=== PATIENT | female | born 1985 | race Caucasian/White ===

== ENCOUNTER 2019-09-30 11:53 | Observation (INO) | payer OTHER ==
[2019-09-30] MEDS ORDERED: LORazepam 1 MG TAB PO STA (12:28)
--- NOTE | 2019-09-30 12:40 | ED ---
Skin/Abscess/FB HPI - General Chief complaint: Skin/Abscess/Foreign Body Stated complaint: FB in arm Time Seen by Provider: 09/30/19 11:55 Source: patient Mode of arrival: wheelchair Limitations: no limitations - History of Present Illness Initial comments: A shows a 33-year-old female past medical history of IVDA who presents to the emergency department with reported once her bilateral upper extremities. States she has had multiple open wounds, the largest of which is on the right forearm. 3 days ago she went into [facility] and was placed on Keflex and Bactrim. She states that she took the medications for 1 day and woke up to the wounds getting larger in size. She then went back into [facility]. States that they were going to admitted to the hospital for failed outpatient treatment. She states that she was poorly treated there, therefore left before being admitted to the floor. She does admit to recent heroin use. Denies any fevers or chills. Does have mild pustular drainage from the sites. Denies any nausea or vomiting. No other alleviating, precipitating or modifying factors - Related Data Home Medications Medication Instructions Recorded Confirmed ALPRAZolam [Xanax] 0.25 mg PO BID PRN 09/30/19 09/30/19 ARIPiprazole [Abilify] 10 mg PO DAILY 09/30/19 09/30/19 Acetaminophen Tab [Tylenol] 1,000 mg PO Q4H PRN 09/30/19 09/30/19 FLUoxetine HCL [PROzac] 20 mg PO DAILY 09/30/19 09/30/19 Ibuprofen [Motrin Ib] 800 mg PO Q4H PRN 09/30/19 09/30/19 Previous Rx's Medication Instructions Recorded Sulfamethox-Tmp 800-160Mg [Bactrim 1 tab PO Q12HR 5 Days #12 tab 10/02/19 DS 800-160 mg] Allergies Allergy/AdvReac Type Severity Reaction Status Date / Time No Known Allergies Allergy Verified 09/30/19 13:05 Review of Systems ROS Statement: Those systems with pertinent positive or pertinent negative responses have been documented in the HPI. ROS Other: All systems not noted in ROS Statement are negative. Past Medical History Past Medical History: Asthma History of Any Multi-Drug Resistant Organisms: None Reported Past Surgical History: Cholecystectomy Past Psychological History: ADD/ADHD, Anxiety, Bipolar, Depression Smoking Status: Current every day smoker Past Alcohol Use History: None Reported Past Drug Use History: Heroin - Past Family History Mother Family Medical History: Hypertension Additional Family Medical History / Comment(s): Anxiety Father Family Medical History: Diabetes Mellitus, Liver Disease Additional Family Medical History / Comment(s): Hepatitis C General Exam Limitations: no limitations General appearance: alert, in no apparent distress Head exam: Present: atraumatic, normocephalic, normal inspection Eye exam: Present: normal appearance, PERRL, EOMI. Absent: scleral icterus, conjunctival injection, periorbital swelling ENT exam: Present: normal exam, mucous membranes moist Neck exam: Present: normal inspection. Absent: tenderness, meningismus, lymphadenopathy Respiratory exam: Present: normal lung sounds bilaterally. Absent: respiratory distress, wheezes, rales, rhonchi, stridor Cardiovascular Exam: Present: regular rate, normal rhythm, normal heart sounds. Absent: systolic murmur, diastolic murmur, rubs, gallop, clicks GI/Abdominal exam: Present: soft, normal bowel sounds. Absent: distended, tenderness, guarding, rebound, rigid Extremities exam: Present: full ROM, tenderness, normal capillary refill, other (Multiple open wounds to the bilateral anterior forearms. Patient has an area of erythema over the anterior right mid forearm. Central area of scab. No active drainage from this site. No fluctuance currently. No lymphatic streaking. No joint involvement). Absent: pedal edema, joint swelling, calf tenderness Back exam: Present: normal inspection Neurological exam: Present: alert, oriented X3, CN II-XII intact Psychiatric exam: Present: normal affect, normal mood Skin exam: Present: warm, dry, intact, normal color. Absent: rash Course Vital Signs 09/30/19 09/30/19 11:54 15:28 Temperature 98.7 F Pulse Rate 94 82 Respiratory 18 16 Rate Blood Pressure 123/79 123/65 O2 Sat by Pulse 98 99 Oximetry Procedures - Incision & Drainage Consent Obtained: verbal consent Site: upper extremity Anesthetic Used: lidocaine 1% Amount (mLs): 6 I&D Cleaning Method: Chloroprep Sterile Field Used?: Yes Needle Aspiration Performed?: No Irrigation Performed?: No I&D Drainage Obtained: Pus Culture Obtained?: Yes Patient Tolerated Procedure: well, no complications Medical Decision Making - Medical Decision Making Upon arrival the patient is placed in room 19. A thorough history and physical exam was performed. Peripheral IV was established. Laboratory studies were obtained including blood cultures. Patient initiated on Unasyn and Vanco. The patient's right forearm abscess was incised. Timeout performed at 15:05. Wound culture obtained. Patient will be admitted for failed outpatient treatment. I discussed the case with Dr. London who accepted admission. She was then transferred to the floor - Lab Data Result diagrams: 10/01/19 08:14 10/01/19 08:14 Lab Results 09/30/19 09/30/19 09/30/19 Range/Units 13:35 13:54 13:54 WBC 5.6 (3.8-10.6) k/uL RBC 4.31 (3.80-5.40) m/uL Hgb 12.2 (11.4-16.0) gm/dL Hct 38.4 (34.0-46.0) % MCV 89.2 (80.0-100.0) fL MCH 28.3 (25.0-35.0) pg MCHC 31.7 (31.0-37.0) g/dL RDW 13.0 (11.5-15.5) % Plt Count 207 (150-450) k/uL Neutrophils % 64 % Lymphocytes % 28 % Monocytes % 3 % Eosinophils % 3 % Basophils % 0 % Neutrophils # 3.6 (1.3-7.7) k/uL Lymphocytes # 1.6 (1.0-4.8) k/uL Monocytes # 0.2 (0-1.0) k/uL Eosinophils # 0.2 (0-0.7) k/uL Basophils # 0.0 (0-0.2) k/uL ESR 32 H (0-20) mm/hr Sodium 138 (137-145) mmol/L Potassium 4.3 (3.5-5.1) mmol/L Chloride 106 (98-107) mmol/L Carbon Dioxide 26 (22-30) mmol/L Anion Gap 6 mmol/L BUN 10 (7-17) mg/dL Creatinine 0.42 L (0.52-1.04) mg/dL Est GFR (CKD-EPI)AfAm >90 (>60 ml/min/1.73 sqM) Est GFR (CKD-EPI)NonAf >90 (>60 ml/min/1.73 sqM) Glucose 119 H (74-99) mg/dL Plasma Lactic Acid Damian 1.2 (0.7-2.0) mmol/L Calcium 9.2 (8.4-10.2) mg/dL Total Bilirubin 0.2 (0.2-1.3) mg/dL AST 26 (14-36) U/L ALT 31 (4-34) U/L Alkaline Phosphatase 79 (38-126) U/L C-Reactive Protein 30.5 H (<10.0) mg/L Total Protein 7.4 (6.3-8.2) g/dL Albumin 4.2 (3.5-5.0) g/dL Disposition Clinical Impression: Cellulitis of arm, right, Abscess, Intravenous drug abuse Disposition: ADMITTED IP TO THIS [facility] Condition: Stable Is patient prescribed a controlled substance at d/c from ED?: No Decision to Admit Reason: Admit from EC Decision Date: 09/30/19 Decision Time: 14:31
--- NOTE | 2019-09-30 13:45 | XR ---
EXAMINATION TYPE: XR forearm bilateral DATE OF EXAM: 09/30/2019 CLINICAL HISTORY: pain TECHNIQUE: Frontal and lateral images of the left forearm are obtained. COMPARISON: None. FINDINGS: There is no acute fracture/dislocation evident. The joint spaces appear within normal limi ts. Sliver radiopaque foreign body ventral soft tissues approximately 6 cm from the elbow joint. IMPRESSION: There is no acute fracture or dislocation. ICD 10 NO FRACTURE, INITIAL EVALUATION EXAMINATION TYPE: XR forearm bilateral DATE OF EXAM: 09/30/2019 CLINICAL HISTORY: pain TECHNIQUE: Frontal and lateral images of the right forearm are obtained. COMPARISON: None. FINDINGS: There is no acute fracture/dislocation evident. The joint spaces appear within normal limi ts. The overlying soft tissue appears unremarkable.
[2019-09-30 14:07] LABS: Basophils % (A) 0 %; Eosinophils # (A) 0.2 k/uL (0-0.7); Eosinophils % (A) 3 %; HCT 38.4 % (34.0-46.0); HGB 12.2 gm/dL (11.4-16.0); Lymphocytes # (A) 1.6 k/uL (1.0-4.8); Lymphocytes % (A) 28 %; MCH 28.3 pg (25.0-35.0); MCHC 31.7 g/dL (31.0-37.0); MCV 89.2 fL (80.0-100.0); Mean Platelet Volume 8.1; Monocytes # (A) 0.2 k/uL (0-1.0); Monocytes % (A) 3 %; Neutrophils # (A) 3.6 k/uL (1.3-7.7); Neutrophils % (A) 64 %; Platelet Count 207 k/uL (150-450); RBC 4.31 m/uL (3.80-5.40); WBC 5.6 k/uL (3.8-10.6)
[2019-09-30 14:23] LABS: ALT 31 U/L (4-34); AST 26 U/L (14-36); African American GFR (CKD) >90 (>60 ml/min/1.73 sqM); Albumin 4.2 g/dL (3.5-5.0); Alkaline Phosphatase 79 U/L (38-126); Anion Gap 6 mmol/L; Blood Urea Nitrogen 10 mg/dL (7-17); C Reactive Protein 30.5 mg/L (<10.0); Calcium 9.2 mg/dL (8.4-10.2); Carbon Dioxide 26 mmol/L (22-30); Chloride 106 mmol/L (98-107); Glucose 119 mg/dL (74-99); Non-African American GFR(CKD) >90 (>60 ml/min/1.73 sqM); Potassium 4.3 mmol/L (3.5-5.1); Sodium 138 mmol/L (137-145); Total Bilirubin 0.2 mg/dL (0.2-1.3); Total Protein 7.4 g/dL (6.3-8.2)
[2019-09-30] MEDS ORDERED: LIDOCAINE 1% INJ 10MG/ML (20 ML MDV) SQ ONE (14:59)
[2019-09-30] MEDS ORDERED: NALOXONE 0.4 MG/ML 1 ML VIAL IV PRN (15:07)
[2019-09-30 15:20] LABS: Erythrocyte Sedimentation Rate 32 mm/hr (0-20)
[2019-09-30] MEDS ORDERED: AMPICILLIN-SULBACTAM 3 GM in SODIUM CHLORIDE 0.9% 100 ML IVPB STA (15:25)
[2019-09-30] MEDS ORDERED: VANCOMYCIN IV PER PHARMACY 1 EACH MISC MISCELLANE PRN (15:25)
[2019-09-30] MEDS ORDERED: MORPHINE SULFATE 2 MG/ML SYRINGE IVP STA (15:41)
[2019-09-30] MEDS ORDERED: VANCOMYCIN 1,500 MG in SODIUM CHLORIDE 0.9% 250 ML IVPB ONE (15:45)
[2019-09-30] MEDS: SODIUM CHLORIDE 0.9% 1,000 ML IV SCH (15:47)
[2019-09-30] MEDS: HYDROcodone/APAP 5-325MG 1 EACH TAB PO PRN ×2 (17:50→23:37)
[2019-09-30] MEDS: ALPRAZolam 0.25 MG TAB PO PRN (22:26)
[2019-09-30] MEDS: HEPARIN SODIUM,PORCINE 5,000 UNIT/ML 1 ML VIAL SQ SCH (23:35)
[2019-10-01] MEDS: VANCOMYCIN 1,500 MG in SODIUM CHLORIDE 0.9% 250 ML IVPB SCH ×2 (00:11→08:25)
[2019-10-01] MEDS: SODIUM CHLORIDE 0.9% 1,000 ML IV SCH ×3 (00:12→20:13)
--- NOTE | 2019-10-01 00:32 | P.HPIM ---
History of Present Illness H&P Date: 09/30/19 Chief Complaint: Right forearm swelling Patient is a 33-year-old female with a known history of IVDU, ongoing nicotine addiction, ADD/ADHD, anxiety/depression, bipolar disorder came to ER with complaints of right forearm. Patient states that she went to [facility] and was started on antibiotics in the form of Keflex and Bactrim about 3 days ago. Patient took her medication for 1 day and felt like swelling is getting worse and wounds are getting larger and went back to [facility]. Patient was being admitted to the hospital but patient left AMA saying that she was not treated well there. Patient presented to the hospital ER. Otherwise patient denied any complaints of fever or chills. Complains of pain. Patient admits heroin use. Patient was found to have cholangitis from the right forearm wound and I&D was done in the ER. Patient denied any complaints of chest pain or shortness of breath. No nausea vomiting or abdominal pain or diarrhea. No cough or sputum production. Forearm x-ray right showed no acute fracture or dislocation. Overlying soft tissue appears unremarkable. Lab data showed WBC 5.6, hemoglobin 12.2 and platelets 207 Sodium 138, potassium 4.3 and BUN 10 creatinine 0.42 CRP 30.5 Lactic acidosis 1.2 Patient has been afebrile on admission. Review of Systems Constitutional: Patient denies any fever or chills . No generalized weakness or weight loss. Abdomen: Patient denied nausea vomiting and diarrhea and abdominal pain. Cardiovascular: Patient denies any chest pain or short of breath no palpitations. Respiratory: patient denied any cough is from production. No shortness of breath Neurologic: Patient denied any numbness or tingling headache. Musculoskeletal: Patient denies any complaints of joint swelling or deformity. n Right forearm swelling and pain. Skin: Negative Psychiatric: Negative Endocrine: No heat or cold intolerance. No recent weight gain. Genitourinary: No dysuria or hematuria. All other 14 point ROS negative except the above Constitutional: Reports as per HPI Past Medical History Past Medical History: Asthma Additional Past Medical History / Comment(s): Asthma as a child, ovarian cysts History of Any Multi-Drug Resistant Organisms: None Reported Past Surgical History: Cholecystectomy Past Anesthesia/Blood Transfusion Reactions: No Reported Reaction Smoking Status: Light tobacco smoker - Past Family History Mother Family Medical History: Hypertension Additional Family Medical History / Comment(s): Anxiety Father Family Medical History: Diabetes Mellitus, Liver Disease Additional Family Medical History / Comment(s): Hepatitis C Medications and Allergies Home Medications Medication Instructions Recorded Confirmed Type ALPRAZolam [Xanax] 0.25 mg PO BID PRN 09/30/19 09/30/19 History ARIPiprazole [Abilify] 10 mg PO DAILY 09/30/19 09/30/19 History Acetaminophen Tab [Tylenol Tab] 1,000 mg PO Q4H PRN 09/30/19 09/30/19 History FLUoxetine HCL [PROzac] 20 mg PO DAILY 09/30/19 09/30/19 History Ibuprofen [Motrin Ib] 800 mg PO Q4H PRN 09/30/19 09/30/19 History Allergies Allergy/AdvReac Type Severity Reaction Status Date / Time No Known Allergies Allergy Verified 09/30/19 13:05 Physical Exam Vitals: Vital Signs Temp Pulse Pulse Resp BP BP Pulse Ox 09/30/19 16:46 98.0 F 82 17 118/80 97 09/30/19 15:28 82 16 123/65 99 09/30/19 11:54 98.7 F 94 18 123/79 98 Intake and Output 09/30/19 09/30/19 09/30/19 06:59 14:59 22:59 Other: Weight 90.718 kg 90.718 kg PHYSICAL EXAMINATION: Patient is lying in the bed comfortably, no acute distress, awake alert and oriented.. HEENT: Normocephalic. Neck is supple. Pupils reactive. Nostrils clear. Oral cavity is moist. Ears reveal no drainage. Neck reveals no JVD, carotid bruits, or thyromegaly. CHEST EXAMINATION: Trachea is central. Symmetrical expansion. Lung way clear to auscultation and percussion. CARDIAC: Normal S1, S2 with no gallops. No murmurs ABDOMEN: Soft. Bowel sounds normal. No organomegaly. No abdominal bruits. Extremities: reveal no edema. No clubbing or cyanosis Neurologically awake, alert, oriented x3 with well-coordinated movements. No focal deficits noted Skin: No rash or skin lesions. Psychiatric: Coperative. Nonsuicidal Musculoskeletal: No joint swelling or deformity. Normal range of motion. Right forearm swelling with open wound on the medial side of the elbow. Redness and warmth present. Minimal tenderness. No other fluid collections noted. Results CBC & Chem 7: 09/30/19 13:54 09/30/19 13:54 Labs: Abnormal Lab Results - Last 24 Hours (Table) 09/30/19 09/30/19 Range/Units 13:54 13:54 ESR 32 H (0-20) mm/hr Creatinine 0.42 L (0.52-1.04) mg/dL Glucose 119 H (74-99) mg/dL C-Reactive Protein 30.5 H (<10.0) mg/L Thrombosis Risk Factor Assmnt - DVT/VTE Prophylaxis DVT/VTE Prophylaxis: Pharmacologic Prophylaxis ordered - Choose All That Apply Any of the Below Risk Factors Present?: Yes Each Factor Represents 1 point: Obesity (BMI >25) Other Risk Factors: No Other congenital or acquired thrombophilia - If yes, enter type in comment: No Thrombosis Risk Factor Assessment Total Risk Factor Score: 1 Thrombosis Risk Factor Assessment Level: Low Risk Assessment and Plan Assessment: Right forearm abscess with surrounding cellulitis. Status post I&D in the ER. IV drug use with heroin Asthma stable Anxiety depression bipolar disorder DVT prophylaxis with heparin subcu Obesity with BMI 32.3 Plan: Patient will be continued on antibiotics of vancomycin and Unasyn dose was given in the ER. Follow-up blood culture report. Continue the pain management. Further recommendations based on clinical course. Patient was counseled extensively to quit using IV drugs. Smoking cessation has been counseled as well. Time with Patient: Greater than 30
[2019-10-01] MEDS: HYDROcodone/APAP 5-325MG 1 EACH TAB PO PRN ×2 (04:47→10:55)
[2019-10-01] MEDS: ARIPiprazole 10 MG TAB PO SCH (08:25)
[2019-10-01] MEDS: HEPARIN SODIUM,PORCINE 5,000 UNIT/ML 1 ML VIAL SQ SCH ×2 (08:25→16:33)
[2019-10-01] MEDS: FLUoxetine HCL 20 MG CAP PO SCH (08:25)
[2019-10-01] MEDS: ALPRAZolam 0.25 MG TAB PO PRN ×2 (08:34→16:33)
[2019-10-01 08:48] LABS: Basophils % (A) 0 %; Eosinophils # (A) 0.3 k/uL (0-0.7); Eosinophils % (A) 4 %; HCT 35.4 % (34.0-46.0); HGB 12.1 gm/dL (11.4-16.0); Lymphocytes # (A) 1.8 k/uL (1.0-4.8); Lymphocytes % (A) 28 %; MCH 29.8 pg (25.0-35.0); MCHC 34.1 g/dL (31.0-37.0); MCV 87.4 fL (80.0-100.0); Mean Platelet Volume 9.7; Monocytes # (A) 0.1 k/uL (0-1.0); Monocytes % (A) 2 %; Neutrophils # (A) 4.1 k/uL (1.3-7.7); Neutrophils % (A) 64 %; Platelet Count 259 k/uL (150-450); RBC 4.05 m/uL (3.80-5.40); RDW 12.8 % (11.5-15.5); WBC 6.4 k/uL (3.8-10.6)
[2019-10-01 09:10] LABS: African American GFR (CKD) >90 (>60 ml/min/1.73 sqM); Anion Gap 6 mmol/L; Blood Urea Nitrogen 6 mg/dL (7-17); Calcium 8.8 mg/dL (8.4-10.2); Carbon Dioxide 21 mmol/L (22-30); Chloride 110 mmol/L (98-107); Glucose 115 mg/dL (74-99); Non-African American GFR(CKD) >90 (>60 ml/min/1.73 sqM); Potassium 4.5 mmol/L (3.5-5.1); Sodium 137 mmol/L (137-145)
[2019-10-01 11:42] VITALS: BMI 32.3
[2019-10-01] MEDS: METHADONE 10 MG TAB PO SCH (14:01)
[2019-10-01] MEDS ORDERED: VANCOMYCIN TROUGH DUE 1 EACH MISC MISCELLANE ONE (23:00)
[2019-10-02] MEDS: HEPARIN SODIUM,PORCINE 5,000 UNIT/ML 1 ML VIAL SQ SCH ×2 (00:18→08:00)
[2019-10-02] MEDS: HYDROcodone/APAP 5-325MG 1 EACH TAB PO PRN (00:29)
[2019-10-02] MEDS: VANCOMYCIN 1,500 MG in SODIUM CHLORIDE 0.9% 250 ML IVPB SCH ×3 (01:37→07:49)
[2019-10-02 02:41] VITALS: RESP 18
[2019-10-02 07:46] VITALS: BP 120/84; PULSE 83; TEMP 98
[2019-10-02] MEDS: METHADONE 10 MG TAB PO SCH (08:00)
[2019-10-02] MEDS: ARIPiprazole 10 MG TAB PO SCH (08:00)
[2019-10-02] MEDS: FLUoxetine HCL 20 MG CAP PO SCH (08:03)
[2019-10-02] MEDS: ALPRAZolam 0.25 MG TAB PO PRN (08:03)
[2019-10-02] MEDS ORDERED: SUBOXONE PO SCH (09:00)
--- NOTE | 2019-10-02 09:51 | P.PN ---
Subjective Progress Note Date: 10/01/19 Principal diagnosis: Right forearm abscess with surrounding cellulitis. Patient is a 33-year-old female with a known history of IVDU, ongoing nicotine addiction, ADD/ADHD, anxiety/depression, bipolar disorder came to ER with complaints of right forearm. Patient states that she went to [facility] and was started on antibiotics in the form of Keflex and Bactrim about 3 days ago. Patient took her medication for 1 day and felt like swelling is getting worse and wounds are getting larger and went back to [facility]. Patient was being admitted to the hospital but patient left AMA saying that she was not treated well there. Patient presented to the hospital ER. Otherwise patient denied any complaints of fever or chills. Complains of pain. Patient admits heroin use. Patient was found to have cholangitis from the right forearm wound and I&D was done in the ER. Patient denied any complaints of chest pain or shortness of breath. No nausea vomiting or abdominal pain or diarrhea. No cough or sputum production. Forearm x-ray right showed no acute fracture or dislocation. Overlying soft tissue appears unremarkable. Lab data showed WBC 5.6, hemoglobin 12.2 and platelets 207 Sodium 138, potassium 4.3 and BUN 10 creatinine 0.42 CRP 30.5 Lactic acidosis 1.2 Patient has been afebrile on admission. 09/30/2016 Patient is currently lying in the bed comfortably. Pain is controlled. No further discharge from the right forearm wound. Right forearm swelling is much improved. Dressing changes be done. Patient is being continued on vancomycin. Patient has been afebrile. Currently pain is controlled with [place] 5. Other cadena patient denied any nausea vomiting or abdominal pain. No chest pain or shortness of breath. Patient is being continued on methadone 10 mg daily. Current medications reviewed. Objective - Vital Signs Vital signs: Vital Signs Temp 98.1 F 10/01/19 15:00 Pulse 73 10/01/19 16:00 Resp 17 10/01/19 16:00 BP 125/80 10/01/19 15:00 Pulse Ox 99 10/01/19 15:00 Intake & Output 09/30/19 10/01/19 10/01/19 18:59 06:59 18:59 Weight 90.718 kg 90.718 kg Other: Voiding Method Toilet Toilet # Voids 1 1 - Exam PHYSICAL EXAMINATION: Patient is lying in the bed comfortably, no acute distress, awake alert and oriented.. HEENT: Normocephalic. Neck is supple. Pupils reactive. Nostrils clear. Oral cavity is moist. Ears reveal no drainage. Neck reveals no JVD, carotid bruits, or thyromegaly. CHEST EXAMINATION: Trachea is central. Symmetrical expansion. Lung way clear to auscultation and percussion. CARDIAC: Normal S1, S2 with no gallops. No murmurs ABDOMEN: Soft. Bowel sounds normal. No organomegaly. No abdominal bruits. Extremities: reveal no edema. Right forearm abscess status post I&D no drainage noted. Swelling improved. No clubbing or cyanosis Neurologically awake, alert, oriented x3 with well-coordinated movements. No focal deficits noted Skin: No rash or skin lesions. Psychiatric: Coperative. Nonsuicidal Musculoskeletal: No joint swelling or deformity. Normal range of motion. - Labs CBC & Chem 7: 10/01/19 08:14 10/01/19 08:14 Labs: Abnormal Lab Results - Last 24 Hours (Table) 10/01/19 Range/Units 08:14 Chloride 110 H (98-107) mmol/L Carbon Dioxide 21 L (22-30) mmol/L BUN 6 L (7-17) mg/dL Creatinine 0.35 L (0.52-1.04) mg/dL Glucose 115 H (74-99) mg/dL Microbiology - Last 24 Hours (Table) 09/30/19 13:35 Blood Culture - Preliminary Blood No Growth after 24 hours 09/30/19 16:38 Gram Stain - Preliminary Arm - Right Wound Culture - Preliminary Assessment and Plan Assessment: Right forearm abscess with surrounding cellulitis. Status post I&D in the ER. Follow up culture report. IV drug use with heroin Asthma stable Anxiety depression bipolar disorder DVT prophylaxis with heparin subcu Obesity with BMI 32.3 Plan: Patient will be continued on antibiotics of vancomycin and Unasyn dose was given in the ER. Blood cultures showed no growth. Wound cultures are pending.. Continue the pain management. Further recommendations based on clinical course. Patient was counseled extensively to quit using IV drugs. Smoking cessation has been counseled as well. Time with Patient: Greater than 30
--- NOTE | 2019-10-05 08:39 | CDI ---
Documentation Clarification Form Date: 10/05/19 From: Cynthia Lakhani Phone: If you have a question about this query, please contact Annabella Romo, Para Educator at [phone] between 8am and 5pm. Admit Date: 09/30/19 Discharge Date: 10/02/19 Patient Name: ANDRADE PAGAN Visit Number: [id number] ATTENTION: The Clinical Documentation Specialists (CDI) and [facility] Coding Staff appreciate your assistance in clarifying documentation. Please respond to the clarification below the line at the bottom and electronically sign. The CDI & [facility] Coding staff will review the response and follow-up if needed. Please note: Queries are made part of the Legal Health Record. If you have any questions, please contact the author of this message via ITS. Dear Dr. Kenzie London, The diagnosis lactic acidosis was documented in the H&P and 719 PN. History/Risk Factors:Abscess and cellulitis or right forearm, opioid abuse, bipolar Clinical Indicators:Lab data showed WBC 5.6, hemoglobin 12.2 and platelets 207 Sodium 138, potassium 4.3 and BUN 10 creatinine 0.42 CRP 30.5 Lactic acidosis 1.2 Please clarify if the lactic acidosis was Lactic acidosis as lab finding only Lactic acidosis Other, please specify Clinically unable to determine Lactic acidosis as lab finding only MTDD
--- NOTE | 2019-10-13 20:29 | P.DS ---
Providers Date of admission: 09/30/19 15:07 Expected date of discharge: 10/02/19 Attending physician: Michelle Wharton Primary care physician: Stated None Hospital Course: Discharge diagnosis. Right forearm abscess with surrounding cellulitis. Status post I&D in the ER. Follow up culture report. IV drug use with heroin Asthma stable Anxiety depression bipolar disorder DVT prophylaxis with heparin subcu Obesity with BMI 32.3 Hospital course Patient is a 33-year-old female with a known history of IVDU, ongoing nicotine addiction, ADD/ADHD, anxiety/depression, bipolar disorder came to ER with compl aints of right forearm. Patient states that she went to [facility] and was started on antibiotics in the form of Keflex and Bactrim about 3 days ago. Patient took her medication for 1 day and felt like swelling is getting worse and wounds are getting larger and went back to [facility]. Patient was being admitted to the hospital but patient left AMA saying that she was not treated well there. Patient presented to the hospital ER. Otherwise patient denied any complaints of fever or chills. Complains of pain. Patient admits heroin use. Patient was found to have cholangitis from the right forearm wound and I&D was done in the ER. Patient denied any complaints of chest pain or shortness of breath. No nausea vomiting or abdominal pain or diarrhea. No cough or sputum production. Forearm x-ray right showed no acute fracture or dislocation. Overlying soft tissue appears unremarkable. Lab data showed WBC 5.6, hemoglobin 12.2 and platelets 207 Sodium 138, potassium 4.3 and BUN 10 creatinine 0.42 CRP 30.5 Lactic acidosis 1.2 Patient has been afebrile on admission. 09/30/2016 Patient is currently lying in the bed comfortably. Pain is controlled. No further discharge from the right forearm wound. Right forearm swelling is much improved. Dressing changes be done. Patient is being continued on vancomycin. Patient has been afebrile. Currently pain is controlled with [place] 5. Otherwise patient denied any nausea vomiting or abdominal pain. No chest pain or shortness of breath. Patient is being continued on methadone 10 mg daily. 10/02/2019 Patient is awake alert oriented x3. Right arm swelling is much improved. Cultures are pending. Patient is being continued on antibiotics the home of. Patient is controlled with [place]. No fever no chills. Patient otherwise left AGAINST MEDICAL ADVICE. Patient Condition at Discharge: Stable Plan - Discharge Summary Discharge Rx Participant: No New Discharge Prescriptions: New Sulfamethox-Tmp 800-160Mg [Bactrim DS 800-160 mg] 1 tab PO Q12HR 5 Days #12 tab Continue Ibuprofen [Motrin Ib] 800 mg PO Q4H PRN PRN Reason: Pain Acetaminophen Tab [Tylenol] 1,000 mg PO Q4H PRN PRN Reason: Pain ALPRAZolam [Xanax] 0.25 mg PO BID PRN PRN Reason: Anxiety FLUoxetine HCL [PROzac] 20 mg PO DAILY ARIPiprazole [Abilify] 10 mg PO DAILY Discharge Medication List ALPRAZolam [Xanax] 0.25 mg PO BID PRN 09/30/19 [History] ARIPiprazole [Abilify] 10 mg PO DAILY 09/30/19 [History] Acetaminophen Tab [Tylenol] 1,000 mg PO Q4H PRN 09/30/19 [History] FLUoxetine HCL [PROzac] 20 mg PO DAILY 09/30/19 [History] Ibuprofen [Motrin Ib] 800 mg PO Q4H PRN 09/30/19 [History] Sulfamethox-Tmp 800-160Mg [Bactrim DS 800-160 mg] 1 tab PO Q12HR 5 Days #12 tab 10/02/19 [Rx] Follow up Appointment(s)/Referral(s): None,Stated [Primary Care Provider] - 1-2 days Discharge Disposition: Left Against Medical Advice
== END 2019-10-02 09:43 | disposition left against medical advice (07) ==
LOC: EC 11:53 → 4SSUR 15:07 → INTOOBSV 15:07 → UNDODISIN 10-02 09:43
PROVIDERS: ADMIT Internal Medicine; ATTEND Internal Medicine
PROC: 0H9BXZX Drainage of Right Upper Arm Skin, External Approach, Diagnostic (ICD-10-PCS; principal; 2019-09-30)
DX: L02.413 Cutaneous abscess of right upper limb (principal); L03.113 Cellulitis of right upper limb; F11.10 Opioid abuse, uncomplicated; F31.9 Bipolar disorder, unspecified; F90.9 Attention-deficit hyperactivity disorder, unspecified type; F41.9 Anxiety disorder, unspecified; J45.909 Unspecified asthma, uncomplicated; E66.9 Obesity, unspecified; Z68.32 Body mass index [BMI] 32.0-32.9, adult; F17.200 Nicotine dependence, unspecified, uncomplicated; Z79.899 Other long term (current) drug therapy; Z87.42 Personal history of other diseases of the female genital tract; Z90.49 Acquired absence of other specified parts of digestive tract; Z20.828 Contact with and (suspected) exposure to other viral communicable diseases; Z83.79 Family history of other diseases of the digestive system; Z82.49 Family history of ischemic heart disease and other diseases of the circulatory system; Z83.1 Family history of other infectious and parasitic diseases; Z83.3 Family history of diabetes mellitus; Z81.8 Family history of other mental and behavioral disorders; Z53.29 Procedure and treatment not carried out because of patient's decision for other reasons
CPT/HCPCS: 96361; 96366 ×2; 96367; 96372 ×3; 96365; 96375; 99284; 10060; 36415; 80053; 80048; 85652; 83605; 85025 ×2; 86140; 81025; 87040; 87070; 87205; 73090; G0378 ×3; U0003; J3370 ×2; J1644 ×3; J2001; J2270; S0109 ×2; J0295; 96374

== ENCOUNTER 2020-11-15 02:15 | Emergency (ER) | payer OTHER ==
[2020-11-15 02:23] VITALS: RESP 16; TEMP 98.3
[2020-11-15] MEDS ORDERED: KETOROLAC 15 MG/ML 1 ML VIAL IVP STA (02:31)
--- NOTE | 2020-11-15 02:33 | ED ---
Abdominal Pain HPI - General Chief Complaint: Abdominal Pain Stated Complaint: Abd Pain Time Seen by Provider: 11/15/20 02:16 Source: patient, EMS Mode of arrival: EMS Limitations: no limitations - History of Present Illness MD Complaint: abdominal pain Onset/Timin -: minutes(s) Location: RLQ Radiation: none Migration to: no migration Severity: severe Quality: sharp Consistency: constant Improves With: nothing Worsens With: nothing Associated Symptoms: nausea - Related Data Home Medications Medication Instructions Recorded Confirmed ALPRAZolam [Xanax] 0.25 mg PO BID PRN 09/30/19 09/30/19 ARIPiprazole [Abilify] 10 mg PO DAILY 09/30/19 09/30/19 Acetaminophen Tab [Tylenol] 1,000 mg PO Q4H PRN 09/30/19 09/30/19 FLUoxetine HCL [PROzac] 20 mg PO DAILY 09/30/19 09/30/19 Ibuprofen [Motrin Ib] 800 mg PO Q4H PRN 09/30/19 09/30/19 Previous Rx's Medication Instructions Recorded Sulfamethox-Tmp 800-160Mg [Bactrim 1 tab PO Q12HR 5 Days #12 tab 10/02/19 DS 800-160 mg] Ibuprofen [Motrin] 600 mg PO Q8HR PRN #20 tab 11/15/20 Sulfamethox-Tmp 800-160Mg [Bactrim 1 each PO Q12HR #6 tab 11/15/20 Ds] Allergies Allergy/AdvReac Type Severity Reaction Status Date / Time No Known Allergies Allergy Verified 11/15/20 02:22 Review of Systems ROS Statement: Those systems with pertinent positive or pertinent negative responses have been documented in the HPI. ROS Other: All systems not noted in ROS Statement are negative. Constitutional: Denies: fever, chills Respiratory: Denies: cough, dyspnea Cardiovascular: Denies: chest pain, palpitations Gastrointestinal: Reports: as per HPI, abdominal pain, nausea. Denies: vomiting, diarrhea, constipation, melena, hematochezia Genitourinary: Denies: dysuria, hematuria Musculoskeletal: Denies: back pain Skin: Denies: rash Neurological: Denies: headache, weakness Past Medical History Past Medical History: Asthma Additional Past Medical History / Comment(s): Asthma as a child, ovarian cysts History of Any Multi-Drug Resistant Organisms: None Reported Past Surgical History: Cholecystectomy Past Anesthesia/Blood Transfusion Reactions: No Reported Reaction Past Psychological History: ADD/ADHD, Anxiety, Bipolar, Depression Smoking Status: Current every day smoker Past Alcohol Use History: None Reported Past Drug Use History: Heroin - Past Family History Mother Family Medical History: Hypertension Additional Family Medical History / Comment(s): Anxiety Father Family Medical History: Diabetes Mellitus, Liver Disease Additional Family Medical History / Comment(s): Hepatitis C General Exam Limitations: no limitations General appearance: alert, in distress (Secondary to abdominal pain) Head exam: Present: atraumatic, normocephalic Eye exam: Present: normal appearance. Absent: scleral icterus, conjunctival injection ENT exam: Present: normal oropharynx Respiratory exam: Present: normal lung sounds bilaterally. Absent: respiratory distress, wheezes, rales, rhonchi, stridor Cardiovascular Exam: Present: regular rate, normal rhythm, normal heart sounds. Absent: systolic murmur, diastolic murmur, rubs, gallop GI/Abdominal exam: Present: soft. Absent: distended, tenderness, guarding, rebound, rigid, mass Extremities exam: Present: normal inspection, normal capillary refill. Absent: pedal edema, calf tenderness Back exam: Present: normal inspection. Absent: CVA tenderness (R), CVA te nderness (L) Neurological exam: Present: alert Skin exam: Present: warm, intact, normal color, diaphoretic. Absent: rash Course Vital Signs 11/15/20 11/15/20 02:16 04:22 Temperature 98.3 F Pulse Rate 78 75 Respiratory 16 16 Rate Blood Pressure 127/75 131/79 O2 Sat by Pulse 97 95 Oximetry Medical Decision Making - Lab Data Result diagrams: 11/15/20 05:47 Lab Results 11/15/20 11/15/20 11/15/20 Range/Units 03:04 03:04 05:47 WBC 12.0 H (3.8-10.6) k/uL RBC 5.05 (3.80-5.40) m/uL Hgb 15.7 (11.4-16.0) gm/dL Hct 46.2 H (34.0-46.0) % MCV 91.6 (80.0-100.0) fL MCH 31.2 (25.0-35.0) pg MCHC 34.1 (31.0-37.0) g/dL RDW 14.8 (11.5-15.5) % Plt Count 153 (150-450) k/uL MPV 10.2 Neutrophils % 82 % Lymphocytes % 12 % Monocytes % 4 % Eosinophils % 1 % Basophils % 1 % Neutrophils # 9.8 H (1.3-7.7) k/uL Lymphocytes # 1.4 (1.0-4.8) k/uL Monocytes # 0.5 (0-1.0) k/uL Eosinophils # 0.1 (0-0.7) k/uL Basophils # 0.1 (0-0.2) k/uL Hypochromasia Slight Plasma Lactic Acid Damian (0.7-2.0) mmol/L Lipase (23-300) U/L Urine Color Yellow Urine Appearance Cloudy H (Clear) Urine pH 6.5 (5.0-8.0) Ur Specific [place] 1.029 (1.001-1.035) Urine Protein 1+ H (Negative) Urine Glucose (UA) Negative (Negative) Urine Ketones Trace H (Negative) Urine Blood Negative (Negative) Urine Nitrite Negative (Negative) Urine Bilirubin Negative (Negative) Urine Urobilinogen 2.0 (<2.0) mg/dL Ur Leukocyte Esterase Large H (Negative) Urine RBC 4 (0-5) /hpf Urine WBC 48 H (0-5) /hpf Ur Squamous Epith Cells 3 (0-4) /hpf Amorphous Sediment Few H (None) /hpf Urine Bacteria Rare H (None) /hpf Hyaline Casts 1 (0-2) /lpf Urine Mucus Few H (None) /hpf Urine HCG, Qual Not Detected (Not Detectd) 11/15/20 11/15/20 Range/Units 05:47 05:47 WBC (3.8-10.6) k/uL RBC (3.80-5.40) m/uL Hgb (11.4-16.0) gm/dL Hct (34.0-46.0) % MCV (80.0-100.0) fL MCH (25.0-35.0) pg MCHC (31.0-37.0) g/dL RDW (11.5-15.5) % Plt Count (150-450) k/uL MPV Neutrophils % % Lymphocytes % % Monocytes % % Eosinophils % % Basophils % % Neutrophils # (1.3-7.7) k/uL Lymphocytes # (1.0-4.8) k/uL Monocytes # (0-1.0) k/uL Eosinophils # (0-0.7) k/uL Basophils # (0-0.2) k/uL Hypochromasia Plasma Lactic Acid Damian 1.1 (0.7-2.0) mmol/L Lipase 74 (23-300) U/L Urine Color Urine Appearance (Clear) Urine pH (5.0-8.0) Ur Specific [place] (1.001-1.035) Urine Protein (Negative) Urine Glucose (UA) (Negative) Urine Ketones (Negative) Urine Blood (Negative) Urine Nitrite (Negative) Urine Bilirubin (Negative) Urine Urobilinogen (<2.0) mg/dL Ur Leukocyte Esterase (Negative) Urine RBC (0-5) /hpf Urine WBC (0-5) /hpf Ur Squamous Epith Cells (0-4) /hpf Amorphous Sediment (None) /hpf Urine Bacteria (None) /hpf Hyaline Casts (0-2) /lpf Urine Mucus (None) /hpf Urine HCG, Qual (Not Detectd) Disposition Clinical Impression: Abdominal pain, Ovarian cyst, Urinary tract infection Disposition: HOME SELF-CARE Condition: Good Instructions (If sedation given, give patient instructions): Ovarian Cyst (ED), Urinary Tract Infection in Women (ED), Abdominal Pain (ED) Prescriptions: Sulfamethox-Tmp 800-160Mg [Bactrim Ds] 1 each PO Q12HR #6 tab Ibuprofen [Motrin] 600 mg PO Q8HR PRN #20 tab PRN Reason: Pain Is patient prescribed a controlled substance at d/c from ED?: No Referrals: None,Stated [Primary Care Provider] - 1-2 days
[2020-11-15] MEDS ORDERED: MORPHINE SULFATE 4 MG/ML SYRINGE IV STA (03:15)
[2020-11-15 03:19] LABS: Amorphous Sediment,Urine Few /hpf; Appearance,Urine Cloudy (Clear); Bacteria,Urine Rare /hpf; Bilirubin,Urine Negative (Negative); Blood,Urine Negative (Negative); Color,Urine Yellow; Glucose,Urine (UA) Negative (Negative); Hyaline Casts,Urine 1 /lpf (0-2); Ketones,Urine Trace (Negative); Leukocyte Esterase,Urine Large (Negative); Mucus,Urine Few /hpf; Nitrite,Urine Negative (Negative); PH, Urine 6.5 (5.0-8.0); Protein,Urine 1+ (Negative); RBC,Urine 4 /hpf (0-5); Specific Gravity,Urine 1.029 (1.001-1.035); Squamous Epithelial Cell,Urine 3 /hpf (0-4); WBC,Urine 48 /hpf (0-5)
--- NOTE | 2020-11-15 04:06 | CT ---
EXAMINATION TYPE: CT abdomen pelvis wo con DATE OF EXAM: 11/15/2020 COMPARISON: None HISTORY: RLQ pain. history of ovarian cysts/endometriosis. no prior on PACS CT DLP: 922.6 mGycm Automated exposure control for dose reduction was used. Lung bases are clear. There is no pleural effusion. Heart size is normal. There is no pericardial eff usion. Liver spleen stomach pancreas appear intact. Bile ducts are nondilated. Gallbladder appears normal. There is no adrenal mass. Kidneys have normal size. There is no hydronephrosis. Ureters are not dilat ed. There is no retroperitoneal adenopathy. Appendix is posterior and appears normal. Bladder distend s smoothly. There is 4.5 cm cyst on the right ovary. There is no free fluid in the pelvis. There is n o inguinal hernia. Uterus is anteverted. Lumbar vertebra have normal spacing and alignment. Posterior elements are intact. There is no compression fracture. Bony pelvis appears normal. Hip joints appear normal. There is no mesenteric edema. There is no ascites or free air. There is no bowel obstruction. IMPRESSION: Large cyst in the pelvis on the right side consistent with ovarian cyst. No free fluid. Normal append ix.
--- NOTE | 2020-11-15 05:49 | US ---
EXAMINATION TYPE: US transvaginal DATE OF EXAM: 11/15/2020 COMPARISON: CT 11/15/2020 CLINICAL HISTORY: R/O torsion. Right pelvic pain TECHNIQUE: . Transvaginal sonographic images of the pelvis were acquired. Date of LMP: Irregular cycles EXAM MEASUREMENTS: Uterus: 8.1 x 3.9 x 4.6 cm Endometrial Stripe: 0.6 cm Right Ovary: 7.2 x 8.1 x 3.9 cm Left Ovary: 2.7 x 2.1 x 1.7 cm 1. Uterus: Anteverted wnl 2. Endometrium: wnl 3. Right Ovary: Complex cystic area visualized measuring 7 cm 4. Left Ovary: wnl Spectral, color and waveform doppler imaging shows good arterial and venous flow within the ovaries ; there is no evidence for ovarian torsion. 5. Bilateral Adnexa: wnl 6. Posterior cul-de-sac: Tiny amount of free fluid visualized IMPRESSION: Large right side ovarian cyst with a some complex features. There are some internal echoes. Normal uterus and endometrium. No evidence of ovarian torsion. Minimal free fluid.
[2020-11-15 06:17] LABS: Basophils # (A) 0.1 k/uL (0-0.2); Basophils % (A) 1 %; Eosinophils # (A) 0.1 k/uL (0-0.7); Eosinophils % (A) 1 %; HCT 46.2 % (34.0-46.0); HGB 15.7 gm/dL (11.4-16.0); Hypochromasia Slight; Lymphocytes # (A) 1.4 k/uL (1.0-4.8); Lymphocytes % (A) 12 %; MCH 31.2 pg (25.0-35.0); MCHC 34.1 g/dL (31.0-37.0); MCV 91.6 fL (80.0-100.0); Mean Platelet Volume 10.2; Monocytes # (A) 0.5 k/uL (0-1.0); Monocytes % (A) 4 %; Neutrophils # (A) 9.8 k/uL (1.3-7.7); Neutrophils % (A) 82 %; Platelet Count 153 k/uL (150-450); RBC 5.05 m/uL (3.80-5.40); RDW 14.8 % (11.5-15.5)
[2020-11-15] MEDS ORDERED: SULFAMETHOX-TMP 800-160MG 1 EACH TAB PO STA (07:13)
[2020-11-15] MEDS ORDERED: SODIUM CHLORIDE 0.9% 1,000 ML IV ONE (08:22)
[2020-11-15 09:21] VITALS: BP 118/80; PULSE 83
== END 2020-11-15 10:02 | disposition home or self-care (01) ==
LOC: EC 02:15
DX: N83.201 Unspecified ovarian cyst, right side (principal); N39.0 Urinary tract infection, site not specified; J45.909 Unspecified asthma, uncomplicated; F17.200 Nicotine dependence, unspecified, uncomplicated; F11.90 Opioid use, unspecified, uncomplicated; F31.9 Bipolar disorder, unspecified; F41.9 Anxiety disorder, unspecified; Z79.1 Long term (current) use of non-steroidal anti-inflammatories (NSAID); Z79.899 Other long term (current) drug therapy; Z83.3 Family history of diabetes mellitus; Z82.49 Family history of ischemic heart disease and other diseases of the circulatory system; Z90.49 Acquired absence of other specified parts of digestive tract
CPT/HCPCS: 36415; 83605; 83690; 85025; 81001; 81025; 87086; 93975; 76830; 74176; 96374; 96375; 96361; 99284; J2270; J1885

== ENCOUNTER 2021-01-28 22:44 | Emergency (ER) | payer OTHER ==
[2021-01-28 22:56] VITALS: RESP 22; TEMP 98.3
--- NOTE | 2021-01-28 22:56 | ED ---
Overdose HPI - General Chief Complaint: Overdose Stated Complaint: Accidental Overdose Time Seen by Provider: 01/28/21 22:55 Source: patient, EMS Mode of arrival: EMS - Related Data Home Medications Medication Instructions Recorded Confirmed FLUoxetine HCL [PROzac] 20 mg PO DAILY 09/30/19 11/15/20 Buprenorphine HCl/Naloxone HCl 1 tab SUBLINGUAL BID 11/15/20 11/15/20 [Zubsolv 5.7-1.4 mg Tablet Sl] Previous Rx's Medication Instructions Recorded Ibuprofen [Motrin] 600 mg PO Q8HR PRN #20 tab 11/15/20 Sulfamethox-Tmp 800-160Mg [Bactrim 1 each PO Q12HR #6 tab 11/15/20 Ds] Allergies Allergy/AdvReac Type Severity Reaction Status Date / Time No Known Allergies Allergy Verified 11/15/20 08:56 Review of Systems ROS Statement: Those systems with pertinent positive or pertinent negative responses have been documented in the HPI. ROS Other: All systems not noted in ROS Statement are negative. Past Medical History Past Medical History: Asthma Additional Past Medical History / Comment(s): Asthma as a child, ovarian cysts History of Any Multi-Drug Resistant Organisms: None Reported Past Surgical History: Cholecystectomy Past Anesthesia/Blood Transfusion Reactions: No Reported Reaction Past Psychological History: ADD/ADHD, Anxiety, Bipolar, Depression Smoking Status: Current every day smoker Past Alcohol Use History: None Reported Past Drug Use History: Heroin - Past Family History Mother Family Medical History: Hypertension Additional Family Medical History / Comment(s): Anxiety Father Family Medical History: Diabetes Mellitus, Liver Disease Additional Family Medical History / Comment(s): Hepatitis C Course Vital Signs 01/28/21 22:48 Temperature 98.3 F Pulse Rate 101 H Respiratory 22 Rate Blood Pressure 116/75 O2 Sat by Pulse 96 Oximetry Medical Decision Making - EKG Data -: EKG Interpreted by Me (EKG is sinus rhythm 95 MD 134 QRS 92 QTC 477) Disposition Clinical Impression: Accidental drug overdose Disposition: HOME SELF-CARE Condition: Fair Instructions (If sedation given, give patient instructions): Adult Overdose (ED) Is patient prescribed a controlled substance at d/c from ED?: No Referrals: None,Stated [Primary Care Provider] - 1-2 days
[2021-01-28] MEDS ORDERED: SODIUM CHLORIDE 0.9% 1,000 ML IV STA (23:24)
[2021-01-28] MEDS ORDERED: LORazepam 1 MG TAB PO STA (23:55)
[2021-01-29] MEDS ORDERED: hydrOXYzine pamoate 25 MG CAP PO ONE (00:15)
[2021-01-29 00:30] VITALS: BP 120/86; PULSE 85
== END 2021-01-29 00:30 | disposition home or self-care (01) ==
LOC: EC 22:44
DX: T44.7X1A Poisoning by beta-adrenoreceptor antagonists, accidental (unintentional), initial encounter (principal); J45.909 Unspecified asthma, uncomplicated; F90.9 Attention-deficit hyperactivity disorder, unspecified type; F41.9 Anxiety disorder, unspecified; F31.9 Bipolar disorder, unspecified; F17.200 Nicotine dependence, unspecified, uncomplicated; Z90.49 Acquired absence of other specified parts of digestive tract
CPT/HCPCS: 93005; 99284

== ENCOUNTER 2024-02-25 22:05 | Emergency (ER) | payer OTHER ==
--- NOTE | 2024-02-25 22:11 | ED ---
General Adult HPI - General Stated complaint: Overdose Time Seen by Provider: 02/25/24 22:05 Source: patient, EMS, RN notes reviewed Mode of arrival: EMS Limitations: no limitations - History of Present Illness Initial comments: 38-year-old female presents emerged part via EMS chief complaint of heroin overdose. Patient states she normally snorts heroin states that she started to inject today states that she fell like she was an overdose so she used some Narcan. Patient did have noted nausea vomiting. Patient has been awake alert orientated for EMS. Patient has no other complaints denies being suicidal - Related Data Home Medications Medication Instructions Recorded Confirmed FLUoxetine HCL [PROzac] 20 mg PO DAILY 09/30/19 11/15/20 Buprenorphine HCl/Naloxone HCl 1 tab SUBLINGUAL BID 11/15/20 11/15/20 [Zubsolv 5.7-1.4 mg Tablet Sl] Previous Rx's Medication Instructions Recorded Ibuprofen [Motrin] 600 mg PO Q8HR PRN #20 tab 11/15/20 Sulfamethox-Tmp 800-160Mg [Bactrim 1 each PO Q12HR #6 tab 11/15/20 Ds] Allergies Allergy/AdvReac Type Severity Reaction Status Date / Time No Known Allergies Allergy Verified 02/25/24 23:19 Review of Systems ROS Statement: Those systems with pertinent positive or pertinent negative responses have been documented in the HPI. ROS Other: All systems not noted in ROS Statement are negative. Past Medical History Past Medical History: Asthma Additional Past Medical History / Comment(s): Asthma as a child, ovarian cysts History of Any Multi-Drug Resistant Organisms: None Reported Past Surgical History: Cholecystectomy Past Anesthesia/Blood Transfusion Reactions: No Reported Reaction Past Psychological History: ADD/ADHD, Anxiety, Bipolar, Depression Smoking Status: Current every day smoker Past Alcohol Use History: None Reported Past Drug Use History: Heroin - Past Family History Mother Family Medical History: Hypertension Additional Family Medical History / Comment(s): Anxiety Father Family Medical History: Diabetes Mellitus, Liver Disease Additional Family Medical History / Comment(s): Hepatitis C General Exam Limitations: no limitations General appearance: alert, in no apparent distress Head exam: Present: atraumatic, normocephalic, normal inspection Eye exam: Present: normal appearance, PERRL, EOMI. Absent: scleral icterus, conjunctival injection, periorbital swelling ENT exam: Present: normal exam, mucous membranes moist Neck exam: Present: normal inspection, full ROM. Absent: tenderness, meningismus, lymphadenopathy Respiratory exam: Present: normal lung sounds bilaterally. Absent: respiratory distress, wheezes, rales, rhonchi, stridor Cardiovascular Exam: Present: regular rate, normal rhythm, normal heart sounds. Absent: systolic murmur, diastolic murmur, rubs, gallop, clicks GI/Abdominal exam: Present: soft, normal bowel sounds. Absent: distended, tenderness, guarding, rebound, rigid Course Vital Signs 02/25/24 23:15 Temperature 98.3 F Pulse Rate 106 H Respiratory 18 Rate Blood Pressure 120/84 O2 Sat by Pulse 97 Oximetry Medical Decision Making - Medical Decision Making Was pt. sent in by a medical professional or institution (GLADYS Marin, DIRECTOR PLANS, urgent care, hospital, or fpc...) When possible be specific @ -No Did you speak to anyone other than the patient for history (EMS, parent, family, police, friend...)? What history was obtained from this source @ -EMS regarding prehospital treatment Did you review nursing and triage notes (agree or disagree)? Why? @ -I reviewed and agree with nursing and triage notes Were old charts reviewed (outside hosp., previous admission, EMS record, old EKG, old radiological studies, urgent care reports/EKG's, fpc records)? Report findings @ -No old charts were reviewed Differential Diagnosis (chest pain, altered mental status, abdominal pain women, abdominal pain men, vaginal bleeding, weakness, fever, dyspnea, syncope, headache, dizziness, GI bleed, back pain, seizure, CVA, palpatations, mental health, musculoskeletal)? @ -[Drug overdose accidental overdose heroin abuse EKG interpreted by me (3pts min.). @ -None X-rays interpreted by me (1pt min.). @ -None done CT interpreted by me (1pt min.). @ -None done U/S interpreted by me (1pt. min.). @ -None done What testing was considered but not performed or refused? (CT, X-rays, U/S, labs)? Why? @ -None What meds were considered but not given or refused? Why? @ -None Did you discuss the management of the patient with other professionals (jackie caro ikemal Marin, PA, DIRECTOR PLANS, lab, RT, psych nurse, social media intern, financial institution vice president, teacher, special loan officer, case planner)? Give summary @ -No Was smoking cessation discussed for >3mins.? @ -No Was critical care preformed (if so, how long)? @ -No Were there social determinants of health that impacted care today? How? (Homelessness, low income, unemployed, alcoholism, drug addiction, transportation, low edu. Level, literacy, decrease access to med. care, fpc, rehab)? @ -No Was there de-escalation of care discussed even if they declined (Discuss DNR or withdrawal of care, Hospice)? DNR status @ -No What co-morbidities impacted this encounter? (DM, HTN, Smoking, COPD, CAD, Cancer, CVA, ARF, Chemo, Hep., AIDS, mental health diagnosis, sleep apnea, morbid obesity)? @ -None Was patient admitted / discharged? Hospital course, mention meds given and route, prescriptions, significant lab abnormalities, going to OR and other pertinent info. @ -Discharged patient was observed for extensive period time patient is awake alert and orientated ambulating no signs distress she states she feels greatly improved will be discharged in stable condition. Patient states she does have Narcan at home. Undiagnosed new problem with uncertain prognosis? @ -No Drug Therapy requiring intensive monitoring for toxicity (Heparin, Nitro, Insulin, Cardizem)? @ -No Were any procedures done? @ -No Diagnosis/symptom? @ -Accidental opiate overdose Acute, or Chronic, or Acute on Chronic? @ -acute Uncomplicated (without systemic symptoms) or Complicated (systemic symptoms)? @ -complicated Side effects of treatment? @ -No Exacerbation, Progression, or Severe Exacerbation? @ -No Poses a threat to life or bodily function? How? (Chest pain, [place], [place], pneumonia, PE, COPD, DKA, ARF, appy, cholecystitis, CVA, Diverticulitis, Homicidal, Suicidal, threat to staff... and all critical care pts) @ -yes drug overdose Disposition Clinical Impression: Accidental drug overdose Disposition: HOME SELF-CARE Condition: Stable Instructions (If sedation given, give patient instructions): Adult Overdose (ED) Additional Instructions: Please return to the Emergency Department if symptoms worsen or any other concerns. Is patient prescribed a controlled substance at d/c from ED?: No Referrals: None,Stated [Primary Care Provider] - 1-2 days Time of Disposition: 23:49
[2024-02-25] MEDS ORDERED: ONDANSETRON ODT 4 MG TAB PO STA (22:15)
[2024-02-25 23:20] VITALS: BP 120/84; PULSE 106; RESP 18; TEMP 98.3
== END 2024-02-25 23:50 | disposition home or self-care (01) ==
LOC: EC 22:05
DX: T40.1X1A Poisoning by heroin, accidental (unintentional), initial encounter (principal); F17.200 Nicotine dependence, unspecified, uncomplicated
CPT/HCPCS: 99284